=== PATIENT | female | born 1970 | race Hispanic/Latino ===

== ENCOUNTER 2017-06-16 18:36 | Emergency (ER) | payer SELFPAY ==
[2017-06-16 19:40] VITALS: BP 119/82
--- NOTE | 2017-06-16 22:25 | Emergency Department Report ---
ED Lower Extremity HPI - General Chief Complaint: Extremity Injury, Lower Stated Complaint: KNEE PAIN Time Seen by Provider: 06/16/17 20:53 Source: patient, family Mode of arrival: Ambulatory Limitations: Physical Limitation (patient ambulate with crutches due to left lower extremity injury) - History of Present Illness Initial Comments: Patient reports that she fell 2 weeks ago and tripped and hit her knee and left lower extremity. She says she was seen in [facility] at the time of incident and had x-ray done which showed that she had fractured tibia distally. Patient with posterior ankle splint on. She said they also told her she might have ligament injury to her knee and told her that they did not have a knee immobilizer and she might need one. She said they did x-ray and there was no fracture to her knee and she went in place knee knee pad on to keep her left knee from moving. Patient here reporting that she is in increased pain and did not follow-up with orthopedic doctor because she does not have any any insurance. She says she was told to follow up with orthopedic but she didn't get a chance to. Patient said they gave her Tylenol 3 and she did not take it because it make her sick. Based on report from [facility] patient had Tylenol 3 prescription written on 06/05/2017 which she filled at pharmacy in [facility] and also had a separate prescription written for 06/10/2017 where she had Tylenol 3 filled at another pharmacy in [facility]. Prior to this patient did not have any narcotics filled since August 2016. Patient says she is in pain at 6/10 her left leg and then another 10 to her left knee. Pain is worse with movement better with rest then. Denies any fever or chills. Denies any numbness or tingling to extremities. MD Complaint: knee injury (left knee pain), ankle injury (left ankle pain), fall Onset/Timin -: week(s) Injury: Knee: Left (pain), Ankle: Left (pain) Type of Injury: other (fall) Place: home Severity: severe Severity scale (0 -10): 9 Improves With: immobilization, rest Worsens With: weight bearing, movement, palpation Context: fall Associated Symptoms: swelling, unable to bear weight. denies: numbness, tingling Treatments Prior to Arrival: splint, other (crutches) - Related Data Previous Rx's Medication Instructions Recorded Last Taken Type Oxycodone HCl/Acetaminophen 1 each PO Q6HR PRN #15 tablet 04/28/14 Unknown Rx [Percocet 7.5-325 mg] Ibuprofen [Motrin] 600 mg PO Q8H PRN #15 tablet 06/16/17 Unknown Rx Allergies Allergy/AdvReac Type Severity Reaction Status Date / Time Penicillins Allergy Unknown Verified 04/28/14 20:23 tramadol Allergy Hives Verified 04/28/14 20:23 ED Review of Systems ROS: Stated complaint: KNEE PAIN Other details as noted in HPI Comment: All other systems reviewed and negative Constitutional: no symptoms reported Respiratory: no symptoms reported Cardiovascular: denies: chest pain, palpitations, dyspnea on exertion, edema, syncope, paroxysmal nocturnal dyspnea Gastrointestinal: denies: abdominal pain, nausea, vomiting Musculoskeletal: joint swelling, arthralgia. denies: back pain Skin: denies: rash Neurological: abnormal gait (lower extremity due to injury 2 weeks ago.). denies: numbness, paresthesias, confusion ED Past Medical Hx - Past Medical History Previous Medical History?: Yes Additional medical history: 2 bulging disc in neck. 2 herniated in back. Left knee injury and left ankle injury 2017 - Surgical History Past Surgical History?: Yes Additional Surgical History: endometriosis-hysterectomy - Social History Smoking Status: Current Every Day Smoker Substance Use Type: None - Medications Home Medications: Home Medications Medication Instructions Recorded Confirmed Last Taken Type Oxycodone HCl/Acetaminophen 1 each PO Q6HR PRN #15 tablet 04/28/14 Unknown Rx [Percocet 7.5-325 mg] Ibuprofen [Motrin] 600 mg PO Q8H PRN #15 tablet 06/16/17 Unknown Rx ED Physical Exam - General Limitations: No Limitations General appearance: alert, in no apparent distress - Head Head exam: Present: atraumatic, normocephalic, normal inspection - Eye Eye exam: Present: normal appearance, PERRL, EOMI Pupils: Present: normal accommodation - ENT ENT exam: Present: normal exam, normal orophraynx, mucous membranes moist - Neck Neck exam: Present: normal inspection, full ROM, other (no C-spine tenderness). Absent: tenderness, meningismus, lymphadenopathy, thyromegaly - Respiratory Respiratory exam: Present: normal lung sounds bilaterally. Absent: respiratory distress, chest wall tenderness - Cardiovascular Cardiovascular Exam: Present: regular rate, normal rhythm, normal heart sounds. Absent: systolic murmur, diastolic murmur - GI/Abdominal GI/Abdominal exam: Present: soft, normal bowel sounds. Absent: distended, tenderness, guarding, rebound, rigid, organomegaly, mass, bruit, pulsatile mass , hernia - Extremities Exam Extremities exam: Present: tenderness, normal capillary refill, other (patient with no clubbing, cyanosis or edema to extremities. No neurovascular compromise. +2 pulses to all extremities.). Absent: normal inspection, full ROM, pedal edema, joint swelling, calf tenderness - Expanded Lower Extremity Exam Left Hip exam: Present: normal inspection, full ROM, pelvic stability. Absent: tenderness, swelling, abrasion, laceration, ecchymosis, deformity, crepidus, dislocation, erythema, external rotation, internal rotation, shortening Upper Leg exam: Present: normal inspection, full ROM. Absent: tenderness, swelling, abrasion, laceration, ecchymosis, deformity, crepidus, dislocation, erythema Knee exam: Present: normal inspection, full ROM (patient reports pain with movement.), tenderness (tendon to palpate to return in her knee. No effusion, ballottement or erythema. No swelling noted.), pain/laxity with valgus, pain/ laxity with varus, full knee extension (patient with full knee extension but reports pain). Absent: swelling, abrasion, laceration, ecchymosis, deformity, crepidus, erythema, effusion Lower Leg exam: Present: normal inspection, full ROM. Absent: tenderness, swelling, abrasion, laceration, ecchymosis, deformity, crepidus, dislocation, erythema, palpable cord, Vianca's sign Ankle exam: Present: tenderness (ankle at distal tibia), swelling (ankle distal tibia). Absent: full ROM (limited range of motion due to pain. Removal posterior splint taken off her exam and replaced after exam), abrasion, laceration, ecchymosis, deformity, crepidus, dislocation, erythema, anterior draw sign Foot/Toe exam: Present: normal inspection, full ROM. Absent: tenderness, swelling, abrasion, laceration, ecchymosis, deformity, crepidus, dislocation, erythema, amputation, puncture wound, foreign body, calcaneal tenderness, tenderness at base of 5th metatarsal, nail avulsion, subungual hematoma Neuro vascular tendon exam: Present: no vascular compromise. Absent: pulse deficit, abnormal cap refill, motor deficit (decreased range of movement to lower extremity due to injury and pain. No signs of compartment syndrome.), sensory deficit, tendon deficit, extremity cold to touch, pallor, abnormal 2- point discrimination, decreased fine/light touch, foot drop, peroneal nerve deficit, significant pain with passive ROM of distal joint Gait: Positive: unable to bear weight - Back Exam Back exam: Present: normal inspection, full ROM, other (patient ambulating with crutches from injury to left lower extremity 2 weeks ago). Absent: tenderness, CVA tenderness (R), CVA tenderness (L), muscle spasm, paraspinal tenderness, vertebral tenderness, rash noted - Neurological Exam Neurological exam: Present: alert, oriented X3, reflexes normal. Absent: abnormal gait (abnormal gait due to injury to left lower extremity. Patient with splint and crutches.) - Psychiatric Psychiatric exam: Present: normal affect, normal mood - Skin Skin exam: Present: warm, dry, intact, normal color. Absent: rash ED Course Vital Signs 06/16/17 19:36 Temperature 98.4 F Pulse Rate 85 Respiratory 18 Rate Blood Pressure 119/82 O2 Sat by Pulse 96 Oximetry - Reevaluation(s) Reevaluation #1: 06/16/17 22:43 Patient given knee immobilizer to left knee. She is also given Percocet 5/325 milligram tablets 2 and Toradol 60 mg IM. I discussed with her that she will need to follow up with orthopedic doctor for management of injury to ankle and left knee. - Orthopedic Splinting/Casting Injury #1 Side: left Lower Extremity Injury Location: knee Lower Extremity Immobilizer: knee immobilizer Additional Comments: already has crutches and also posterior splint to left ankle. Neurovascular check is normal ED Lower Extremity MDM - Medical Decision Making ED course: Patient here for pain management of left ankle injury which she reports that she went to [facility] 2 weeks ago after falling and they did a x-ray of her left ankle and show that she has a fracture to her left tibia and patient has posterior ankle splint in place. She also says that they told her she might have ligament injury to her knee but they did not have any immobilizer and told her that she needs to go and buy a knee immobilizer in the meantime she says she's been put in knee brace on. She is complaining of knee pain and left ankle pain. Patient says that they gave her Tylenol 3 but it make her sick so she stopped taking it. According to [facility] records, patient had Tylenol 3 filled twice at 2 different pharmacy within a 5 day. I discussed this with her and she says that there was a mixup. I discussed the patient that I cannot give her any narcotics to take home but I can give her Motrin and I will treat her pain and emergency room. She is agreeable. Posterior ankle splint which is removable taken off to examine left ankle and patient has no signs of compartment syndrome and she has good pedal pulses. Left knee without any swelling or effusion but she does have pain with movement. Patient placed in left knee immobilizer and left posterior splint placed back to left ankle and patient with crutches and instructions to not do any weightbearing to left lower extremity. I discussed with her that she'll need to follow-up with orthopedic doctor as was previously instructed at [facility]. Patient referred to Dr. riddle orthopedic and some outside Medical Center to follow-up in 1-2 days. She was given Percocet 5/325 2 tablets emergency room and Toradol 60 mg IM. Patient discharged home a prescription for Motrin. Critical care attestation.: If time is entered above; I have spent that time in minutes in the direct care of this critically ill patient, excluding procedure time. ED Disposition Clinical Impression: Arthralgia of multiple sites Disposition: DC-01 TO HOME OR SELFCARE Is pt being admited?: No Does the pt Need Aspirin: No Condition: Stable Instructions: Splint Care (ED), Knee Immobilizer (ED), Musculoskeletal Pain (ED ) Additional Instructions: Please follow up with orthopedic doctor as instructed. Prescriptions: Ibuprofen [Motrin] 600 mg PO Q8H PRN #15 tablet PRN Reason: Pain Referrals: [facility] [Outside] - 06/17/17 NOEMI TRAN MD [Staff Physician] - 06/18/17 Forms: Work/School Release Form(ED)
[2017-06-16] MEDS ORDERED: TORADOL IM ONE (22:43)
[2017-06-16] MEDS ORDERED: PERCOCET 5/325 PO ONE (22:43)
== END 2017-06-16 23:11 | disposition home or self-care (01) ==
LOC: ED 18:36
DX: M25.562 Pain in left knee (principal); F17.200 Nicotine dependence, unspecified, uncomplicated; Z88.6 Allergy status to analgesic agent; Z88.0 Allergy status to penicillin
CPT/HCPCS: 29505; 96372; 99282; J1885

== ENCOUNTER 2019-12-31 20:59 | Emergency (ER) | payer SELFPAY ==
[2019-12-31 21:27] VITALS: BP 100/69
--- NOTE | 2019-12-31 21:27 | Emergency Department Report ---
History of Present Illness - General Stated Complaint: OVERDOSE Time Seen by Provider: 12/31/19 21:03 Source: patient, EMS Mode of arrival: Ambulatory Limitations: No Limitations - History of Present Illness Initial Comments: Patient is a 49-year-old female that presents emergency room with overdose on Xanax and oxycodone. Patient states she took 60 mg of oxycodone and 2 mg of Xanax. Patient states she also took marijuana. Patient states she called the ambulance for her because he was unresponsive. Patient states then she became really sleepy. Patient brought in by EMS. Patient states she woke up with EMS standing over her. Patient did not receive any Narcan. Patient has a past medical history of chronic pain. Patient denies any new physical complaints. Patient denies chest pain or shortness of breath. Patient denies difficulty breathing. Patient denies headache. Patient denies blurry vision. Patient denies suicidal/homicidal ideations. Patient denies trying to kill herself. Patient denies recent travel. Patient denies recent international travel. Patient denies exposure to the novel coronavirus. Patient denies sick contacts. Patient denies fever and chills. Patient denies cough. Patient denies diarrhea. Patient denies coming in contact with anybody with symptoms of the novel coronavirus. Report received from EMS. EMS states the patient was not given any Narcan. EMS states that the patient was easily arousable and patient was asleep with the phone in her hand. EMS states that she fell asleep while talking with the dis cold patcher. Patient's vital signs were stable the whole time. MD Complaint: accidental overdose - Related Data Previous Rx's Medication Instructions Recorded Last Taken Type Oxycodone HCl/Acetaminophen 1 each PO Q6HR PRN #15 tablet 04/28/14 Unknown Rx [Percocet 7.5-325 mg] Ibuprofen [Motrin] 600 mg PO Q8H PRN #15 tablet 06/16/17 Unknown Rx Allergies Allergy/AdvReac Type Severity Reaction Status Date / Time Penicillins Allergy Unknown Verified 04/28/14 20:23 tramadol Allergy Hives Verified 04/28/14 20:23 ED Review of Systems ROS: Stated complaint: OVERDOSE Other details as noted in HPI Constitutional: denies: chills, fever Eyes: denies: eye pain, eye discharge, vision change ENT: denies: ear pain, throat pain Respiratory: denies: cough, shortness of breath, wheezing Cardiovascular: denies: chest pain, palpitations Endocrine: no symptoms reported Gastrointestinal: denies: abdominal pain, nausea, diarrhea Genitourinary: denies: urgency, dysuria, discharge Musculoskeletal: denies: back pain, joint swelling, arthralgia Skin: denies: rash, lesions Neurological: denies: headache, weakness, paresthesias Psychiatric: denies: anxiety, depression, auditory hallucinations, visual hallucinations, homicidal thoughts, suicidal thoughts Hematological/Lymphatic: denies: easy bleeding, easy bruising ED Past Medical Hx - Past Medical History Previous Medical History?: Yes Additional medical history: 2 bulging disc in neck. 2 herniated in back. Left knee injury and left ankle injury 2018. Chronic pain - Surgical History Past Surgical History?: Yes Additional Surgical History: endometriosis-hysterectomy - Family History Family history: no significant - Social History Smoking Status: Current Every Day Smoker Substance Use Type: Marijuana, Prescribed - Medications Home Medications: Home Medications Medication Instructions Recorded Confirmed Last Taken Type Oxycodone HCl/Acetaminophen 1 each PO Q6HR PRN #15 tablet 04/28/14 Unknown Rx [Percocet 7.5-325 mg] Ibuprofen [Motrin] 600 mg PO Q8H PRN #15 tablet 06/16/17 Unknown Rx ED Physical Exam - General Limitations: No Limitations General appearance: alert, in no apparent distress - Head Head exam: Present: atraumatic, normocephalic - Eye Eye exam: Present: normal appearance, PERRL Pupils: Present: normal accommodation - ENT ENT exam: Present: mucous membranes moist - Neck Neck exam: Present: normal inspection - Respiratory Respiratory exam: Present: normal lung sounds bilaterally. Absent: respiratory distress, wheezes, rales - Cardiovascular Cardiovascular Exam: Present: regular rate, normal rhythm. Absent: systolic murmur, diastolic murmur, rubs, gallop - GI/Abdominal GI/Abdominal exam: Present: soft, normal bowel sounds - Extremities Exam Extremities exam: Present: normal inspection - Back Exam Back exam: Present: normal inspection - Neurological Exam Neurological exam: Present: alert, oriented X3 - Psychiatric Psychiatric exam: Present: normal affect, normal mood - Skin Skin exam: Present: warm, dry, intact, normal color. Absent: rash ED Course Vital Signs 12/31/19 21:00 Temperature 98.9 F Pulse Rate 88 Respiratory 18 Rate Blood Pressure 100/69 [Left] O2 Sat by Pulse 97 Oximetry - Reevaluation(s) Reevaluation #1: After initial evaluation, the patient states she does not want to be further evaluated. Patient refuses further investigation. Patient is alert and oriented x4. I discussed risk with patient. Patient voiced understanding of risk. Patient signed AMA form. 12/31/19 21:26 ED Medical Decision Making - Medical Decision Making Patient is a 49-year-old female that presents emergency room for overdose. Patient states she took oxycodone 60 mg and 2 mg of Xanax and smokes marijuana. Patient states that her went unresponsive and she called 911 for some help for him. Per EMS, while the patient was on the phone with dispatch the p atient and fell asleep and became unresponsive. EMS states when they arrived they were able to wake the patient up with verbal stimuli and the patient did not require Narcan. Patient's vital signs stable per EMS. Patient's vital signs stable while she was here. After the initial exam, the patient refused further evaluation. Patient signed out AMA. I discussed the risk with patient. I discussed the risk of patient going unresponsive again and the patient voiced understanding of all risks. Patient signed AMA form. Patient left the hospital AGAINST MEDICAL ADVICE. - Differential Diagnosis Overdose Critical care attestation.: If time is entered above; I have spent that time in minutes in the direct care of this critically ill patient, excluding procedure time. ED Disposition Clinical Impression: Overdose Qualifiers: Encounter type: initial encounter Injury intent: accidental or unintentional Qualified Code(s): T50.901A - Poisoning by unspecified drugs, medicaments and biological substances, accidental (unintentional), initial encounter Disposition: DC-07 LEFT AGAINST MED ADVICE Is pt being admited?: No Does the pt Need Aspirin: No Condition: Undetermined Instructions: Narcotic Abuse (ED) Additional Instructions: Patient to follow-up with primary care in 2 to 3 days. Patient to rest. Patient to increase water. Patient to take Tylenol or ibuprofen as needed for pain. Patient to take meds as directed. Patient to return to the ER if condition worsens, changes or new symptoms arise. Referrals: PRIMARY CARE,MD [Primary Care Provider] - 2-3 Days Forms: AMA Form Time of Disposition: 21:28
== END 2019-12-31 21:37 | disposition left against medical advice (07) ==
LOC: ED 20:59
DX: T50.901A Poisoning by unspecified drugs, medicaments and biological substances, accidental (unintentional), initial encounter (principal); Z90.710 Acquired absence of both cervix and uterus; Z79.899 Other long term (current) drug therapy; Z88.0 Allergy status to penicillin; Z88.8 Allergy status to other drugs, medicaments and biological substances
CPT/HCPCS: 99283